=== PATIENT | male | born 1950 | race Caucasian/White ===

== ENCOUNTER 2022-01-08 08:32 | Day surgery (SDC) | payer OTHER, SELFPAY ==
[~2022-01-08] VITALS: Ht 167.6 cm; Wt 69.9 kg
[2022-01-08 12:20] VITALS: BP_SYST 111
[2022-01-08] MEDS ORDERED: ARTICAINE HCL/EPINEPHRINE 4%/1:200,000 BIT 1.7 ML CARTRIDGE IJ ONE (14:25)
[2022-01-08] MEDS ORDERED: NS IRRIG SOLN 1000 ML IR ONE (14:25)
== END 2022-01-08 12:33 | disposition home or self-care (01) ==
LOC: SDS 08:32 → SMU 08:44 → SDS 12:33
PROVIDERS: ATTEND Dentist General Practice
DX: M27.2 Inflammatory conditions of jaws (principal); I10 Essential (primary) hypertension; E78.5 Hyperlipidemia, unspecified; M35.3 Polymyalgia rheumatica; Z98.890 Other specified postprocedural states; Z20.822 Contact with and (suspected) exposure to COVID-19
CPT/HCPCS: 21026; 21215; 21248; 36415; 70140; 87426; C1713 ×2